=== PATIENT | male | born 1955 | race Caucasian/White ===

== ENCOUNTER → 2021-05-14 08:03 | Outpatient (CLI) | payer MEDICARE, SELFPAY ==
[2021-05-15 20:11] LABS: Hemoglobin A1C% w Est Avg Glu 5.2 % (4.0-6.0)
[2021-05-15 20:20] LABS: Hematocrit 43.3 % (41-53); Hemoglobin 14.7 g/dL (13.5-17.5); Mean Corpuscular Hemoglobin 31.1 PG (26-34); Mean Corpuscular Volume 91.4 fL (80-100); Platelet Count 278 X10^3/uL (150-400); Red Blood Cell Count 4.74 X10^6/uL (4.5-5.9); White Blood Cell Count 7.5 X10^3/uL (4.5-11.0)
[2021-05-15 20:42] LABS: Alanine Aminotransferase 47 IU/L (<50); Albumin 4.4 g/dL (3.5-5.0); Albumin Globulin Ratio 1.9 (1.0-2.8); Alkaline Phosphatase 55 U/L (38-126); Aspartate Aminotransferase 44 IU/L (17-59); BUN Creatinine Ratio 17.1 (6-22); Bilirubin Total 0.6 mg/dL (0.2-1.3); Blood Urea Nitrogen 14 mg/dL (9-20); Calcium 9.5 mg/dL (8.4-10.2); Carbon Dioxide 26 mmol/L (22-32); Chloride 105 mmol/L (98-107); Cholesterol 152 mg/dL (140-199); Estimated Glomerular Filt Rate > 60.0 mL/min (>60); Globulin 2.3 g/dL (1.7-4.1); Glucose 103 mg/dL (80-110); HDL Cholesterol 80 mg/dL (40-60); HEMOLYSIS < 15 (0-50); LDL Cholesterol Calculated 64 mg/dL (<100); Potassium 4.7 mmol/L (3.4-5.1); Sodium 139 mmol/L (137-145); Total Protein 6.7 g/dL (6.3-8.2); Triglycerides 42 mg/dL (35-150)
[2021-05-15 21:07] LABS: Prostate Specific Antigen Scrn 2.55 ng/mL (0.1-4.0)
[2021-05-15 21:15] LABS: Add Manual Diff / Slide Review YES
[2021-05-15 21:19] LABS: Total Cells Counted 100
[2021-05-15 21:20] LABS: RBC Morphology Normal Morphology
[2021-05-15 21:58] LABS: Neutrophils Absolute Manual 2850 /uL (3000-5900)
[2021-05-17 17:59] LABS: Hep C Virus Ab w/Reflex Quant NEGATIVE s/c (NEGATIVE)
== END ==
PROVIDERS: PCP Physician Assistant; Visit Provider Physician Assistant
DX: I10 Essential (primary) hypertension (principal); H93.19 Tinnitus, unspecified ear; Z12.5 Encounter for screening for malignant neoplasm of prostate; K13.0 Diseases of lips; M25.561 Pain in right knee; Z87.39 Personal history of other diseases of the musculoskeletal system and connective tissue
CPT/HCPCS: 80053; 80061; 83036; 84550; 85007; 85025; 86803; G0103

== ENCOUNTER → 2021-05-29 13:24 | Outpatient (CLI) | payer MEDICARE, SELFPAY ==
[2021-05-30 19:45] LABS: BUN Creatinine Ratio 13.2 (6-22); Blood Urea Nitrogen 10 mg/dL (9-20); Calcium 9.5 mg/dL (8.4-10.2); Carbon Dioxide 32 mmol/L (22-32); Chloride 105 mmol/L (98-107); Estimated Glomerular Filt Rate > 60.0 mL/min (>60); Glucose 95 mg/dL (80-110); HEMOLYSIS < 15 (0-50); Potassium 4.4 mmol/L (3.4-5.1); Sodium 139 mmol/L (137-145)
== END ==
PROVIDERS: PCP Physician Assistant; Visit Provider Physician Assistant
DX: I10 Essential (primary) hypertension (principal)
CPT/HCPCS: 80048

== ENCOUNTER → 2021-08-27 13:16 | Outpatient (CLI) | payer MEDICARE, SELFPAY ==
[2021-08-27 19:12] LABS: Add Manual Diff / Slide Review NO; BUN Creatinine Ratio 17.6 (6-22); Basophils Absolute Auto 100 /uL (0-100); Basophils Percent Auto 0.5 % (0-2); Blood Urea Nitrogen 16 mg/dL (9-20); Calcium 9.9 mg/dL (8.4-10.2); Carbon Dioxide 29 mmol/L (22-32); Chloride 105 mmol/L (98-107); Eosinophils Absolute Auto 300 /uL (0-450); Eosinophils Percent Auto 3.3 % (2-4); Estimated Glomerular Filt Rate > 60.0 mL/min (>60); Glucose 122 mg/dL (80-110); HEMOLYSIS < 15 (0-50); Hematocrit 44.7 % (41-53); Hemoglobin 15.6 g/dL (13.5-17.5); Lymphocytes Absolute Auto 2700 /uL (1100-4500); Lymphocytes Percent Auto 27.1 % (25-40); Mean Corpuscular HGB Conc 34.8 % (30-36); Mean Corpuscular Hemoglobin 31.3 PG (26-34); Monocytes Absolute Auto 900 /uL (0-900); Monocytes Percent Auto 9.1 % (3-14); Neutrophils Absolute Auto 6000 /uL (1500-7000); Platelet Count 333 X10^3/uL (150-400); Potassium 4.5 mmol/L (3.4-5.1); Red Blood Cell Count 4.96 X10^6/uL (4.5-5.9); Red Cell Distribution Width 13.4 % (11.6-14.8); Sodium 139 mmol/L (137-145)
== END ==
PROVIDERS: PCP Physician Assistant; Visit Provider Physician Assistant
DX: I10 Essential (primary) hypertension (principal); D70.9 Neutropenia, unspecified
CPT/HCPCS: 80048; 85025

== ENCOUNTER → 2023-06-05 08:52 | Outpatient (CLI) | payer MEDICARE, SELFPAY ==
[2023-06-05 18:55] LABS: Add Manual Diff / Slide Review NO; Basophils Absolute Auto 0 /uL (0-100); Basophils Percent Auto 0.4 % (0-2); Eosinophils Absolute Auto 500 /uL (0-450); Eosinophils Percent Auto 6.5 % (2-4); Hematocrit 43.3 % (41-53); Hemoglobin 14.7 g/dL (13.5-17.5); Lymphocytes Absolute Auto 2800 /uL (1100-4500); Lymphocytes Percent Auto 38.5 % (25-40); Mean Corpuscular HGB Conc 33.9 % (30-36); Mean Corpuscular Hemoglobin 30.8 PG (26-34); Mean Corpuscular Volume 90.8 fL (80-100); Monocytes Absolute Auto 700 /uL (0-900); Monocytes Percent Auto 9.6 % (3-14); Neutrophils Absolute Auto 3200 /uL (1500-7000); Platelet Count 294 X10^3/uL (150-400); Red Blood Cell Count 4.77 X10^6/uL (4.5-5.9); White Blood Cell Count 7.2 X10^3/uL (4.5-11.0)
[2023-06-05 18:59] LABS: Alanine Aminotransferase 47 IU/L (<50); Albumin 4.2 g/dL (3.5-5.0); Albumin Globulin Ratio 1.6 (1.0-2.8); Alkaline Phosphatase 47 U/L (38-126); Aspartate Aminotransferase 35 IU/L (17-59); BUN Creatinine Ratio 24.4 (6-22); Bilirubin Total 0.8 mg/dL (0.2-1.3); Blood Urea Nitrogen 19 mg/dL (9-20); Calcium 9.6 mg/dL (8.4-10.2); Carbon Dioxide 28 mmol/L (22-32); Chloride 104 mmol/L (98-107); Cholesterol 173 mg/dL (140-199); Estimated Glomerular Filt Rate > 60 mL/min (>60); Globulin 2.6 g/dL (1.7-4.1); Glucose 105 mg/dL (80-110); HDL Cholesterol 81 mg/dL (40-60); HEMOLYSIS < 15 (0-50); LDL Cholesterol Calculated 86 mg/dL (<100); Potassium 4.9 mmol/L (3.4-5.1); Sodium 138 mmol/L (137-145); Total Protein 6.8 g/dL (6.3-8.2); Triglycerides 31 mg/dL (35-150)
[2023-06-05 19:29] LABS: Prostate Specific Antigen Scrn 2.71 ng/mL (0.1-4.0); TSH w/ Reflex to FT4 1.07 uIU/mL (0.47-4.68)
== END ==
PROVIDERS: PCP Physician Assistant; Visit Provider Physician Assistant
DX: Z12.5 Encounter for screening for malignant neoplasm of prostate (principal); D70.9 Neutropenia, unspecified; I10 Essential (primary) hypertension; R49.0 Dysphonia; Z13.6 Encounter for screening for cardiovascular disorders
CPT/HCPCS: 80053; 80061; 84443; 85025; G0103

== ENCOUNTER 2023-09-23 08:12 | Day surgery (SDC) | payer MEDICARE, SELFPAY ==
[2023-09-23 09:09] VITALS: BP 123/73; PULSE 63; RESP 16; TEMP 36.7; O2SAT 97
[2023-09-23] MEDS: LACTATED RINGERS 1,000 ML 42 ML IV (09:30)
--- NOTE | 2023-09-23 10:07 | PM.HP.1 ---
History of Present Illness History of Present Illness Date Patient Seen: 09/23/23 Time Patient Seen: 10:07 Chief complaint: Screening Colonoscopy Narrative: 68 y.o man here for 1st time screening colonoscopy. No family hx of intestinal malignancy. No abdominal concerns today. [facility] Medical History Prostate cancer screening Tinnitus Mumps Chicken pox Surgical History (Updated 09/23/23 @ 10:08 by Johnson Blas MD) H/O pyloromyotomy Family History Father History of heart disease Brother Throat cancer Social History Smoking Status: Never smoker Meds Home Medications and Allergies Home Medications Medication Instructions Recorded Confirmed Type amlodipine 5 mg tablet 5 mg PO DAILY #90 tabs 06/03/23 09/23/23 Rx lisinopril 10 mg tablet 10 mg PO DAILY #90 tabs 06/03/23 09/23/23 Rx Allergies Allergy/AdvReac Type Severity Reaction Status Date / Time No Known Drug Allergies Allergy Verified 09/23/23 09:05 Exam Vital Signs (past 8 hours): - 09/23/23 09:09 Temperature 98.1 F Pulse Rate 63 Respiratory Rate 16 Blood Pressure 123/73 Pulse Oximetry 97 Oxygen Delivery Method Room Air Oxygen Delivery Method Room Air Narrative Exam Narrative: General adult man alert oriented no acute distress Chest nonlabored respiration Extremities warm well perfused Assessment & Plan Assessment & Plan narrative: The patient requires colorectal screening and colonoscopy is recommended. Technical details were discussed. Risks, benefits, alternatives explained. Risks including but not limited to myocardial infarction, aspiration, bleeding, pain, missed lesion, incomplete examination, need for further radiographic studies, intestinal injury, and need for major abdominal surgery were discussed. All questions were answered to their satisfaction, and they are in agreement with this plan.
--- NOTE | 2023-09-23 10:12 | P.OP.COLON_ITS ---
Operative Date/Time/Diagnoses Date of procedure: 09/23/23 Time of procedure: 10:12 Pre-op diagnosis: Colorectal screening Procedure & Clinicians Study performed: A screening colonoscopy Same procedure as scheduled: Yes Indications: Colorectal screening Surgeon: Johnson Blas Procedure Notes Procedure in detail: The history and physical was performed/updated and the patient is ASA class is 2. The procedure was discussed in detail with the patient. Potential risks complications including infection, bleeding, missed diagnosis, perforation, need for surgery, and were explained. Their questions were answered and informed consent was obtained. Patient was brought to the procedure room and placed standard monitoring equipment. The patient's vital signs were monitored continuously throughout the entire procedure. Prior to starting time-out was performed. The patient was placed in the left lateral recumbent position. Procedural sedation was administered by anesthesia. Examination began with a thorough inspection of the perianal area there was no evidence of fissures, fistulae, external hemorrhoids or cutaneous malignancy. The colonoscopy scope was then placed into the anal canal and was advanced to the cecum, which was identified by the ileocecal valve, the appendiceal orifice and the confluence of the taenia. The scope was then slowly withdrawn examining colon thoroughly in all directions, irrigating it of any residual stool. The scope was retroflexed within the rectum The patient tolerated the procedure well. They will be discharged once criteria are met. The prep was of good/excellent quality. The withdrawl time was 6 minutes. FINDINGS * Normal colonoscopy. Healthy colonic mucosa without masses polyps or inflammation * Internal hemorrhoids Specimen(s): none sent Impression: Normal colonoscopy Post-procedure Recommendations: Colonoscopy in 10 years Disposition: same day surgery
[2023-09-23 10:37] VITALS: BP 110/67; PULSE 63; RESP 20; TEMP 36.3; O2SAT 96
[2023-09-23 10:41] VITALS: BP 120/80; PULSE 61; RESP 15; O2SAT 97
[2023-09-23 10:47] VITALS: BP 112/66; PULSE 58; RESP 15; TEMP 36.4; O2SAT 97
[2023-09-23 11:13] VITALS: BP 144/70; PULSE 60; RESP 14; TEMP 36.9; O2SAT 93
--- NOTE | 2023-09-23 11:14 | SUR.PHASEII ---
PT ready for DC. Waiting for taxi.
== END 2023-09-23 11:30 | disposition home or self-care (01) ==
PROVIDERS: PCP Physician Assistant; Referring Provider Surgery; Visit Provider Surgery
PROC: 0DJD8ZZ Inspection of Lower Intestinal Tract, Via Natural or Artificial Opening Endoscopic (ICD-10-PCS; CPT 45378; principal; 2023-09-23 09:30)
DX: Z12.11 Encounter for screening for malignant neoplasm of colon (principal); K64.8 Other hemorrhoids
CPT/HCPCS: G0121; J2704

== ENCOUNTER → 2023-10-02 08:45 | Outpatient (CLI) | payer MEDICARE, SELFPAY ==
[2023-10-02 20:01] LABS: Hematocrit 44.3 % (41-53); Hemoglobin 14.9 g/dL (13.5-17.5); Mean Corpuscular HGB Conc 33.7 % (30-36); Mean Corpuscular Hemoglobin 30.7 PG (26-34); Mean Corpuscular Volume 91.2 fL (80-100); Platelet Count 284 X10^3/uL (150-400); Red Blood Cell Count 4.86 X10^6/uL (4.5-5.9); White Blood Cell Count 7.8 X10^3/uL (4.5-11.0)
[2023-10-02 20:13] LABS: Alanine Aminotransferase 36 IU/L (<50); Albumin 4.5 g/dL (3.5-5.0); Alkaline Phosphatase 52 U/L (38-126); Aspartate Aminotransferase 32 IU/L (17-59); BUN Creatinine Ratio 21.5 (6-22); Bilirubin Total 0.6 mg/dL (0.2-1.3); Blood Urea Nitrogen 17 mg/dL (9-20); Calcium 9.6 mg/dL (8.4-10.2); Carbon Dioxide 28 mmol/L (22-32); Chloride 104 mmol/L (98-107); Estimated Glomerular Filt Rate > 60 mL/min (>60); Globulin 2.3 g/dL (1.7-4.1); Glucose 99 mg/dL (80-110); HEMOLYSIS < 15 (0-50); Magnesium 2.2 mg/dL (1.6-2.3); Potassium 4.7 mmol/L (3.4-5.1); Sodium 136 mmol/L (137-145); Total Protein 6.8 g/dL (6.3-8.2)
[2023-10-02 20:32] LABS: Neutrophils Absolute Manual 3978 /uL (3000-5900); Platelet Estimate Adequate on smear; RBC Morphology Normal Morphology; Total Cells Counted 100
[2023-10-02 20:40] LABS: TSH w/ Reflex to FT4 1.38 uIU/mL (0.47-4.68)
== END ==
PROVIDERS: PCP Physician Assistant; Visit Provider Physician Assistant
DX: R94.31 Abnormal electrocardiogram [ECG] [EKG] (principal); I10 Essential (primary) hypertension; Z87.39 Personal history of other diseases of the musculoskeletal system and connective tissue
CPT/HCPCS: 80053; 83735; 84443; 84550; 85025

== ENCOUNTER → 2023-11-25 09:06 | Outpatient (CLI) | payer MEDICARE, SELFPAY ==
--- NOTE | 2023-11-25 09:07 | DI.ECHO.S_ITS ---
[facility] : : [id number] : : [place] : : [id number] : : Phone: [phone] Echocardiogram Report + + :Name: SHAWNA DELANEY Study Date: 11/25/2023 Height: 67.5 in: :[facility] ReadingLocation: Weight: 185 lb : : Gender: Male BSA: 2.0 m2 : :: 1955 Age: 68 yrs BP: 134/75 mmHg: :Reason For Study: HYPERTENSION : :Ordering Physician: ROSEMARY FISH Performed By: Tennille Barrientos : :Referring: AB GOMEZ P : + + Interpretation Summary 1) Moderately increased left ventricular thickness at the septum (1.8cm). 2) Small left ventricular size with normal wall motion and normal systolic function (EF 55-60%). 3) Normal right ventricular size and function. 4) The echo findings are consistent with left ventricular outflow obstruction (peak gradient 51mmHg). 5) There is systolic anterior motion of the mitral valve. There is mild mitral regurgitation. 6) There is mild to moderate aortic regurgitation. 7) The aortic root is mildly dilated at 4.2cm. 8) No prior Echo available for comparison. 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 Recommend cardiology consultation. Procedure: A two-dimensional transthoracic echocardiogram with color flow and Doppler was performed. The study quality was technically adequate. There is no prior echocardiogram noted for this patient. The patient was in sinus rhythm with heart rates between 58-65 bpm during the exam. Left Ventricle: The left ventricular cavity is small. Left ventricular wall thickness is mild-moderately increased. The echo findings are consistent with left ventricular outflow obstruction. The ejection fraction is estimated to be 55-60%. Left ventricular systolic function appears normal without focal wall motion abnormalities. Diastolic parameters suggest a pseudonormalization pattern, consistent with probable elevated filling pressures. Right Ventricle: The right ventricle is normal size. The right ventricular systolic function is normal. Atria: The left atrium is moderately dilated. Right atrial size is normal. There is no Doppler evidence for an interatrial shunt. Mitral Valve: There is systolic anterior motion of the mitral valve. There is borderline mitral valve prolapse. There is mild mitral regurgitation. Aortic Valve: The aortic valve is trileaflet. The aortic valve opens well. There is no aortic valve stenosis. There is mild to moderate aortic regurgitation. Tricuspid Valve: The tricuspid valve is normal in structure and function. There is mild tricuspid regurgitation. The right ventricular systolic pressure is estimated to be at least 28 mmHg based on an estimated right atrial pressure of 3 mm Hg. Pulmonic Valve: The pulmonic valve leaflets are thin and pliable; valve motion is normal. There is no pulmonic valvular regurgitation. Great Vessels: The aortic root is mildly dilated. The ascending aorta is at the upper limits of normal in size. The IVC is of normal diameter and collapses greater than 50% with a sniff. This suggests a low right atrial pressure of 3 mm Hg. Pericardium/ Pleura There is no pericardial effusion. There is no pleural effusion. MMode/2D Measurements & Calculations LVIDd: 3.9 cm LVOT diam: 2.1 cm LVIDs: 2.6 cm Ao root diam: 4.2 cm FS: 34.0 % asc Aorta Diam: 3.8 cm IVSd: 1.8 cm Ao Arch Diam (Prox Trans): 3.3 cm LVPWd: 1.2 cm LV ulloa. diameter/BSA (cm/m^2): 2.0 LV sys. diameter/BSA (cm/m^2): 1.3 LA A2 area: 21.6 cm2 RA long axis: 4.7 cm LA A4 area: 21.7 cm2 RA area: 15.4 cm2 LA length (vol): 5.4 cm RA vol: 43.0 ml LA vol: 73.4 ml RA : 21.8 ml/m2 LA vol index: 37.3 ml/m2 IVC diam: 1.5 cm RVD1 (basal): 3.9 cm RVD2 (mid): 3.3 cm TAPSE: 1.7 cm Doppler Measurements & Calculations Ao V2 max: 354.4 cm/sec LVOT Max Asif: 168.6 cm/sec Ao V2 mean: 232.4 cm/sec LV V1 max P.4 mmHg Ao max P.6 mmHg LV V1 VTI: 37.2 cm Ao mean P.7 mmHg STEPHON(I,D): 2.0 cm2 Ao V2 VTI: 68.1 cm STEPHON(V,D): 1.7 cm2 sev ratio: 0.55 STEPHON indexed to BSA (cm^2/m^2): 0.99 MV E max asif: 57.2 cm/sec TR max asif: 249.9 cm/sec MV A max asif: 62.9 cm/sec TR max P.0 mmHg MV E/A: 0.91 PA V2 max: 116.4 cm/sec Med Peak E' Asif: 3.5 cm/sec PA V2 mean: 74.9 cm/sec E/E' med: 16.2 PA mean P.6 mmHg Lat Peak E' Asif: 4.7 cm/sec PA pr(Accel): 48.2 mmHg E/E' lat: 12.1 E/e' average: 14.1 MV dec time: 0.24 sec SV(LVOT): 133.2 ml Reading Physician:01:15 PM
== END ==
PROVIDERS: PCP Physician Assistant; Referring Provider Physician Assistant; Visit Provider Physician Assistant
DX: I08.3 Combined rheumatic disorders of mitral, aortic and tricuspid valves (principal); I44.7 Left bundle-branch block, unspecified; R01.1 Cardiac murmur, unspecified; I77.810 Thoracic aortic ectasia
CPT/HCPCS: 93306

== ENCOUNTER → 2025-02-18 09:53 | Outpatient (CLI) | payer MEDICARE, SELFPAY ==
[2025-02-18 19:03] LABS: Alanine Aminotransferase 45 IU/L (<50); Albumin 4.5 g/dL (3.5-5.0); Albumin Globulin Ratio 1.7 (1.0-2.8); Alkaline Phosphatase 55 U/L (38-126); Blood Urea Nitrogen 14 mg/dL (9-20); Calcium 9.4 mg/dL (8.4-10.2); Carbon Dioxide 23 mmol/L (22-32); Chloride 105 mmol/L (98-107); Cholesterol 172 mg/dL (140-199); Estimated Glomerular Filt Rate > 60 mL/min (>60); Globulin 2.6 g/dL (1.7-4.1); Glucose 107 mg/dL (70-99); HDL Cholesterol 70 mg/dL (40-60); HEMOLYSIS 17 (0-50); Potassium 4.6 mmol/L (3.4-5.1); Sodium 138 mmol/L (137-145); Total Protein 7.1 g/dL (6.3-8.2); Triglycerides 64 mg/dL (35-150)
[2025-02-18 19:07] LABS: Add Manual Diff / Slide Review NO; Hematocrit 45.7 % (41-53); Hemoglobin 15.7 g/dL (13.5-17.5); Lymphocytes Absolute Auto 2600 /uL (1100-4500); Mean Corpuscular HGB Conc 34.3 % (30-36); Mean Corpuscular Hemoglobin 30.3 PG (26-34); Mean Corpuscular Volume 88.4 fL (80-100); Platelet Count 264 X10^3/uL (150-400)
== END ==
PROVIDERS: Family Provider Physician Assistant; PCP Physician Assistant; Visit Provider Physician Assistant
DX: I10 Essential (primary) hypertension (principal); D70.9 Neutropenia, unspecified; Z79.899 Other long term (current) drug therapy; Z12.5 Encounter for screening for malignant neoplasm of prostate
CPT/HCPCS: 80053; 80061; 85025; G0103

== ENCOUNTER 2025-04-19 06:18 | Day surgery (SDC) | payer MEDICARE, SELFPAY ==
[2025-04-05 12:39] VITALS: BMI 28.9
--- NOTE | 2025-04-18 13:13 | EKG_ITS ---
[facility]
[2025-04-19] VITALS (8 sets, daily range): BP systolic 137–185; BP diastolic 58–81; PULSE 50–63; RESP 14–18; TEMP 36.2–36.9; O2SAT 94–98
--- NOTE | 2025-04-19 06:11 | P.HP_ITS ---
History of Present Illness
--- NOTE | 2025-04-19 06:11 | PM.HP.IH.1 ---
History of Present Illness History of Present Illness Date Patient Seen: 04/19/25 Time Patient Seen: 06:11 Chief complaint: Lap R inguinal hernia repair w/mesh Narrative: Patient presents for laparoscopic RIHR with mesh (TEP) today. [facility] Medical History (Updated 04/05/25 @ 13:22 by Heidi Nelson RN) Holosystolic murmur Prostate cancer screening Tinnitus Mumps Chicken pox Surgical History (Updated 04/05/25 @ 13:30 by Heidi Nelson RN) Hx of colonoscopy (09/23/23) History of surgery (1954) H/O pyloromyotomy Family History Father History of heart disease Brother Throat cancer Social History Smoking Status: Never smoker additional social history: dad of [place] around 60 yo (smoker, drinker) 2 brothers - no heart problems mom lived to 91 yo. alcohol: 2 beers/day. tobacco: none 09/2023 [facility] Meds Home Medications and Allergies Home Medications ?Medication ?Instructions ?Recorded ?Confirmed ?Type carvedilol 12.5 mg tablet 12.5 mg PO BID 03/02/24 02/14/25 History amlodipine 5 mg tablet 5 mg PO DAILY #90 tabs 02/02/25 02/14/25 Rx Allergies Allergy/AdvReac Type Severity Reaction Status Date / Time No Known Drug Allergies Allergy Verified 02/14/25 08:45 Exam Narrative Exam Narrative: Const General: healthy appearing, comfortable and no acute distress Orientation: alert and oriented x3 HENMT Ears: hearing grossly normal bilaterally Eyes Visual Cantor: normal visual cantor by confrontation Conjunctivae: conjunctivae normal Sclera: sclerae normal EOM: EOM intact bilaterally Resp Effort & Inspection: normal respiratory effort and able to speak in complete sentences Cardio Rate: regular rate GI Palpation: soft (NT) Extrem General: no pedal edema and no calf tenderness Assessment & Plan Assessment and plan (1) Right inguinal hernia: Status: Acute Plan Right inguinal hernia, initial, reducible. Plan laparoscopic right inguinal hernia repair with mesh, TEP no-tack technique. The risks, benefits and options regarding the procedure were explained to the patient in detail. Risk discussion included but not limited to: bleeding, brusing, pain, recurrence, 6 week no lifting period, urinary retention. The patient was encouraged to ask questions and they were answered to their satisfaction. The patient understands and is agreeable to proceed. Time-Based Coding :: [TOTAL MINUTES] spent with patient and on the chart (including review of chart, obtaining history, exam, reviewing outside data, placing orders, documenting exam and treatment plan, and counseling patient) on [DATE]. [employer] Out Worker Document charge(s): Yes Charge Codes Inpatient/observation care including admit and discharge same day: [id number]
[2025-04-19] MEDS: ACETAMINOPHEN 325 MG TABLET 975 MG PO (06:57)
[2025-04-19] MEDS: LACTATED RINGERS 1,000 ML 42 ML IV (06:58)
--- NOTE | 2025-04-19 08:10 | SUR.OPER ---
Supine on padded OR bed, head on pillow, arms padded and tucked at sides, safety strap across patient shoulders, legs uncrossed, safety belt at thigh, tape over blanket over lower legs . all positioning approved and directed by surgeon prior to start of procedure.
--- NOTE | 2025-04-19 08:45 | P.OP_ITS ---
Operative Date/Time/Diagnoses
--- NOTE | 2025-04-19 08:45 | PM.OP.1 ---
Operative Date/Time/Diagnoses Date of procedure: 04/19/25 Time of procedure: 08:45 Pre-op diagnosis: Right inguinal hernia Post-op diagnosis: same (Indirect) Procedure & Clinicians Procedure: Laparoscopic right inguinal hernia repair with mesh (TEP) Same procedure(s) as scheduled: Yes Indications: 70yo M with symptomatic RIH Surgeon: Frankie Pendleton Assisted?: Yes Precision Assembler: Fransisco Cano Anesthesia Type: General Operative Notes Findings: Indirect right inguinal hernia with long sac Closure Type: primary Specimen(s): none sent Applied: other (mesh) Estimated Blood Loss (mL): 10 Blood products transfused: none Procedure in detail: After informed consent and satisfactory general endotracheal anesthesia, the groins were shaved, prepped and draped in the usual sterile manner.? The patient received appropriate preoperative antibiotics and DVT prophylaxis.? Surgical time-out was performed with all team members in agreement.? The correct side was marked in the preoperative holding area.? The preperitoneal space was entered via an infraumbilical incision.? An 0 Vicryl [id number] suture was placed on the anterior rectus sheath incision lateral to midline, ipsilateral to the side of the hernia.? The rectus muscle was retracted laterally and the preperitoneal space was dissected with a blunt 10 mm instrument.? The 10 mm trocar was inserted and the preperitoneal space was insufflated to a pressure of 12 mmHg with carbon dioxide gas.? This allowed direct visual placement of two 5 mm trocars in the suprapubic midline.? The patient was placed in Trendelenburg position.? We further dissected the preperitoneal space including the femoral, direct and indirect spaces.? We dissected out lateral and an ilioinguinal nerve block was performed under direct vision by injecting 10 cc of 0.5% Marcaine with epinephrine into the transversus muscle under direct vision 2 fingerbreadths medial to the anterior superior iliac spine.? A total of 30 cc of 0.5% Marcaine with epinephrine was used.? The remainder was injected into the musculature at the end of the procedure for postoperative analgesia.? Once the preperitoneal space was dissected free we noticed an indirect inguinal hernia. There were no direct or femoral defects.? The peritoneum was dissected proximally off of the cord structures to allow room for the mesh.?He had a long hernia sac that extended nearly the length of the cord. A large Bard 3D Duramax mesh was selected and inserted into the preperitoneal space and unrolled until it was in perfect position and noted to lay in a flat position without wrinkling.? The mesh covered all 3 potential hernia defects widely.? Hemostasis was excellent throughout.? I held the lower border of the mesh with the grasper as we released the carbon dioxide and the peritoneum was noted to relax in a very pleasing manner against the mesh holding it in place.? I made sure that the dissected hernia sac was on the peritoneal side of the mesh. No tacking or fixation was required. The trocars were remove and there was no bleeding noted at the trocar sites.? The 0 Vicryl [id number] suture was tied on the umbilical fascia with no palpable fascial defects.? The skin incisions were closed using 4-0 Monocryl in a subcuticular manner.? Dermabond glue was applied as a final dressing.? The instrument, sponge and needle counts were all correct x2.? The patient tolerated the procedure well and was extubated in the operating room and transported to the recovery area in stable condition. Complications: none Post-operative Condition: stable Disposition: PACU Plan for aftercare: PACU then home
--- NOTE | 2025-04-19 11:09 | SUR.PHASEII ---
Discharge instructions given to pt. Pt states pain is at a 3 but does not want to take pain medication. Pt. discharged with his son. No complaints voiced.
== END 2025-04-19 11:05 | disposition home or self-care (01) ==
PROVIDERS: PCP Physician Assistant; Referring Provider Surgery; Visit Provider Surgery
PROC: 0YQ54ZZ Repair Right Inguinal Region, Percutaneous Endoscopic Approach (ICD-10-PCS; CPT 49650; principal; 2025-04-19 07:45)
DX: K40.90 Unilateral inguinal hernia, without obstruction or gangrene, not specified as recurrent (principal)
CPT/HCPCS: 49650; 82962; 93005; C1781; J0689; J2704; J3010; J7120